=== PATIENT | female | born 2000 | race Caucasian/White ===

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

== ENCOUNTER 2019-08-25 18:26 | Emergency (ER) | payer SELFPAY ==
--- OUTSIDE RECORDS SUMMARY | 2019-08-25 18:27 | XMS REPORT ---
:2000 Author Organization [facility] t Address [address] [place] [address] [address] [place] [address] Care Team Providers Name Role Phone Unavailable Unavailable Unavailable Problems This patient has no known problems. Allergies, Adverse Reactions, Alerts This patient has no known allergies or adverse reactions. Medications This patient has no known medications.
--- OUTSIDE RECORDS SUMMARY | 2019-08-25 18:27 | XMS REPORT ---
:2000 Author Organization [facility] Address Unavailable , Allergies, Adverse Reactions, Alerts Allergy Name Reaction Description Start Date Severity Status Pr ovider No Known Allergies Jenny Lopez Conditions or Problems Problem Name Problem Onset Status Entry Provider Comment Standard A nnotate Code Date Date Description Contraception V25.09 Active Jayne Valdez Encounter for counseling 08/22 [place] other gener al MD counseling and advice on contraceptive management Missed period 626.8 Active Jayne Valdez Other 08/22 [place] disorders of MD menstruation and other abnormal bleeding from female genital tract Vaginal 623.5 Active Jayne Valdez Leukorrhea, discharge 08/22 [place] not specifie d MD as infective Medication List Medication Instructions Start Stop Generic NDC Status Provider Patient Date Date Name Instruct tessy AGRAWAL 1 By NORGESTIMATE-ETH [id number] Active Philip aya Courtney Active 28 0.25-35 Mouth ESTRADIOL [place] MG-MCG Every MD ORAL daily TABLET Vital Signs Date Name Value Unit Range Description blood pressure, diastolic 71 mm[Hg] BP perez blood pressure, systolic 111 mm[Hg] BP sys height E&M 61 [in_us] Bdy height pulse rate E&M 70 /min Heart rate respiratory rate E&M 18 /min Resp rate temperature E&M 97.8 [degF] Body temp erature weight E&M 105.60 [lb_av] Weight Measure d Diagnostic Results Date Name Value Unit Range Description Lab Report: Ct, Ng, Trich vag by NKECHI - L ab chlamydia DNA probe Negative Negative Lab Report: Ct, Ng, Trich vag by NKECHI - M icrobiology Neisseria gonorrhoeae DNA probe Negative Nega tive Office Visit: Acute Visit rm 3 - Medication Manager ry beta HCG, urine, semiquantitative negative Encounters Date Encounter Provider Code Facility New Patient Problem Jayne Centeno [id number] Lexie Alejo 15:18:27 [facility] - [id number] [facility]
--- OUTSIDE RECORDS SUMMARY | 2019-08-25 18:27 | XMS REPORT | Summary of Care ---
:2000 Author Organization [facility] Address [address] [place] [address] Care Team Providers Name Role Phone Pancho Acosta MD Primary Care Provider Reason for Referral Radiology Services (Routine) Status Reason Specialty Diagnoses / Referred By Referred To Procedures Contact Contact Closed Diagnostic Diagnoses Bloating Vidal Acosta Radiology Procedures US ABDOMEN COMPLETE MD Pancho [address] [place] [address] [place] [address] Reason for Visit Radiology Services (Routine) Status Reason Specialty Diagnoses / Referred By Referred To Procedures Contact Contact Closed Diagnostic Diagnoses Bloating Vidal Acosta Radiology Procedures US ABDOMEN YAMILETH Deleon MD [address] [place] [address] [place] [address] Encounter Details Date Type Department Care Team Description 05/15/2019 Hospital Encounter [facility] Fabiano Acosta Arrived [facility] [address] [place] [address] [place] [address] [place] [address] [place] [address] [phone] [address] Allergies No Known Allergiesdocumented as of this encounter (statuses as of 05/16/2019) Medications Medication Sig Dispensed Refills Start Date End Date Status norethindrone-e.estrad Take 1 tablet 1 Package 0 05/16/2016 Active iol-iron (MICROGESTIN by mouth daily. FE) 1.5 mg-30 mcg (21)/75 mg (7) per tablet hydrocortisone 1 % Rub in well to 30 g 1 04/07/2017 Active ointmentIndications: area 4 times a Chemical burn day Nitrofurantoin&Nit. Take 1 capsule 14 capsule 0 05/12/2019 Active Macrocryst 100 mg by mouth 2 capsuleIndications: (two) times Acute UTI daily for 7 days. documented as of this encounter (statuses as of 05/16/2019) Active Problems Problem Noted Date Bloating 05/12/2019 Surveillance of previously prescribed contraceptive me thod 05/27/2015 documented as of this encounter (statuses as of 05/16/2019) Immunizations Name Administration Dates Next Due DTAP 08/10/2003, 10/22/2000, 01/18/2000, 1999, 1999 HIB 4 Dose Schedule 08/10/2003, 07/23/2000, 01/18/2000, 1999, 1999 HPV 12/11/2012, 07/05/2012, 12/20/2011 Hep B, Adol or Pedi Dosage 05/03/2000, 1999, 0 MMR 08/10/2003, 07/23/2000 Meningococcal B, OMV 10/04/2015, 08/23/2015 Meningococcal Polysaccharide (groups 08/23/2015 A, C, Y and W-135) conjugate vaccine (MCV4P) Meningococcal Vaccine 12/20/2011 TDAP (ADACEL) VACCINE 12/20/2011 Varicella-zoster ig 12/20/2011 documented as of this encounter Social History Tobacco Use Types Packs/Day Years Used Date Never Smoker Smokeless Tobacco: Never Used Alcohol Use Drinks/Week oz/Week Comments No 0 Standard drinks or equivalent 0.0 Sex Assigned at Date Recorded Not on file Job Start Date Occupation Industry Not on file Not on file Not on file Travel History Travel Start Travel End No recent travel history available. documented as of this encounter Last Filed Vital Signs Not on filedocumented in this encounter Plan of Treatment Health Maintenance Due Date Last Done Comments CHLAMYDIA SCREENING 05/12/2020 Postponed fr om 2015 (Refu sed) INFLUENZA VACCINE (#1) 2020 Postponed from 12/29/2018 (Refu sed) DTaP,Tdap,and Td Vaccines 12/19/2021 12/20/2011, 08/10/2003 , (7 - Td) 10/22/2000, Additional history exists HPV VACCINES Completed 12/11/2012, 07/05/2012, 12/20/2011 MENINGOCOCCAL VACCINE Completed 08/23/2015, 12/20/2011 MENINGOCOCCAL B VACCINES Completed 10/04/2015, 08/23/2015 PNEUMOCOCCAL 0-64 YEARS Aged Out No longe r eligible COMBINED SERIES based on patient 's age to complete this topic VARICELLA VACCINES Discontinued documented as of this encounter Procedures Procedure Name Priority Date/Time Associated Diagnosis Comme nts US ABDOMEN COMPLETE Routine 05/15/2019 5:25 PM Bloating R esults 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 No i ntraluminal stones seen in the proximal duct. If there is suspicion for choledocholithiasis. Consider magnetic resonance imaging with MRCP. Two simple renal cysts on the left. Preliminary Report Dictated by Resident: Jake Underwood I, Deo Tan MD., have reviewed this study and agree with the above report. Narrative Performed At EXAM: US ABDOMEN COMPLETE PACS/VR/DOSE HISTORY: 18 years-old Female with 18yo F with chronic bloating. . TECHNIQUE: Complete abdominal ultrasound was performed. Main portal vein was with color Doppler imaging. Director Trading images were obtained for the record. COMPARISON: None FINDINGS: LIVER: Length: 14.1 cm. Parenchyma: Normal hepatic echogenicity and echotextur e. No focal lesion is detected. Portal vein: Hepatopetal flow present in the main portal vein. The main portal vein measures 0.9 cm in diameter. GALLBLADDER: No cholelithiasis. Normal gallbladder wall thickness, 3 mm. Negative Brown's sign. BILE DUCTS: Common Duct diameter: Mildly dilated at 7 mm. PANCREAS: Limited visualization due to s hadowing from bowel gas. SPLEEN: The spleen is normal in size. The spleen measures 9.7 cm. No focal lesions in the spleen. KIDNEYS: RIGHT: Length: Normal, 10.6 cm. Parenchyma: Normal renal cortical echoge nicity and thickness. No focal solid or cystic renal lesions are detect ed. Collecting System: No hydronephrosis. LEFT: Length: Normal, 10.3 cm. Parenchyma:Normal renal cortical echogen icity and thickness. 2 anechoic cystic structures are identified, one at mid pole, measuring 2.3 cm, another measuring 6 mm. Collecting System: No hydronephrosis. 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 . TECHNIQUE: Complete abdominal ultrasound was performed. Main portal vein was with color Doppler imaging. Represen tative images were obtained for the record. COMPARISON: None FINDINGS: LIVER: Length: 14.1 cm. Parenchyma: Normal hepatic echogenicity and echotexture. No focal lesion is detected. Portal vein: Hepatopetal flow present in the main portal vein. The main portal vein measures 0.9 cm in diameter. GALLBLADDER: No cholelithiasis. Normal gallbladder wall thickness, 3 mm. Negative Brown's sign. BILE DUCTS: Common Duct diameter: Mildly dilated at 7 mm. PANCREAS: Limited visualization due to s hadowing from bowel gas. SPLEEN: The spleen is normal in size. The spleen measures 9.7 cm. No focal lesions in the spleen. KIDNEYS: RIGHT: Length: Normal, 10.6 cm. Parenchyma: Normal renal cortical echoge nicity and thickness. No focal solid or cystic renal lesions are detect ed. Collecting System: No hydronephrosis. LEFT: Length: Normal, 10.3 cm. Parenchyma:Normal renal cortical echogen icity and thickness. 2 anechoic cystic structures are identified, one at mid pole, measuring 2.3 cm, another measuring 6 mm. Collecting System: No hydronephrosis. IMPRESSION Mildly dilated CBD, measuring 7 mm. No i ntraluminal stones seen in the proximal duct. If there is suspicion for choledocholithiasis. Consider magnetic resonance imaging with MRCP. Two simple renal cysts on the left. Preliminary Report Dictated by Resident: Deo Aguayo MD., have reviewed th is study and agree with the above report. Performing Organization Address City/State/Zipcode Phone Number PACS/VR/DOSE documented in this encounter Visit Diagnoses Diagnosis Bloating Flatulence, eructation, and gas pain documented in this encounter Guarantor Name Account Type Relation to Date of Phone Billing Address Patient Gernand,Minerva Personal/Famil Self 2000 [address] [place], [place] [address] documented as of this encounter
--- OUTSIDE RECORDS SUMMARY | 2019-08-25 18:28 | XMS REPORT | Summary of Care ---
:2000 Author Organization [facility] Address [address] [place] [address] Care Team Providers Name Role Phone Pancho Acosta MD Primary Care Provider Reason for Visit Reason Comments Results Encounter Details Date Type Department Care Team Description 05/16/2019 Telephone [facility] Family Medicine Vidal Gutierrez MD Results - [address] [address] [place] [phone] Allergies No Known Allergiesdocumented as of this encounter (statuses as of 05/26/2019) Medications Medication Sig Dispensed Refills Start Date End Date Status norethindrone-e.estradio Take 1 tablet by 1 Package 0 05/16/19 17 Active l-iron (MICROGESTIN FE) mouth daily. 1.5 mg-30 mcg (21)/75 mg (7) per tablet hydrocortisone 1 % Rub in well to 30 g 1 04/07/2017 Active ointmentIndications: area 4 times a Chemical burn day documented as of this encounter (statuses as of 05/26/2019) Active Problems Problem Noted Date Common bile duct dilatation 05/19/2019 Simple renal cyst 05/19/2019 Bloating 05/12/2019 Surveillance of previously prescribed contraceptive me thod 05/27/2015 documented as of this encounter (statuses as of 05/26/2019) Immunizations Name Administration Dates Next Due DTAP [...] (#1) 2020 Postponed from 12/29/2018 (Refu sed) WELL CARE VISIT: 12-05/12/2020 05/12/2019 YEARS (yearly) DTaP,Tdap,and Td Vaccines 12/19/2021 12/20/2011, 08/10/2003 , (7 - Td) 10/22/2000, Additional history exists HPV VACCINES Completed 12/11/2012, 07/05/2012, 12/20/2011 MENINGOCOCCAL VACCINE Completed 08/23/2015, 12/20/2011 MENINGOCOCCAL B VACCINES Completed 10/04/2015, 08/23/2015 PNEUMOCOCCAL 0-64 YEARS Aged Out No longe r eligible COMBINED SERIES based on patient 's age to complete this topic VARICELLA VACCINES Discontinued documented as of this encounter Results Not on filedocumented in this encounter Insurance Payer Benefit Plan / Group Subscriber ID Effective Dates Phone Address Type FLORES TANNER II [id number] 2019-Present H [place]/PPO/POS documented as of this encounter
--- OUTSIDE RECORDS SUMMARY | 2019-08-25 18:28 | XMS REPORT | Summary of Care ---
:2000 Author Organization [facility] Address [address] [place] [address] Care Team Providers Name Role Phone Pancho Acosta MD Primary Care Provider Reason for Visit Reason Comments Assessment Encounter Details Date Type Department Care Team Description 06/03/2019 Telephone [facility] and Vidal العلي MD Assessment Adult Primary Care- [address] [place] [address] [address] [place] [address] Allergies No Known Allergiesdocumented as of this encounter (statuses as of 06/04/2019) Medications Medication Sig Dispensed Refills Start Date End Date Status norethindrone-e.estradio Take 1 tablet by 1 Package 0 05/16/19 17 Active l-iron (MICROGESTIN FE) mouth daily. 1.5 mg-30 mcg (21)/75 mg (7) per tablet hydrocortisone 1 % Rub in well to 30 g 1 04/07/2017 Active ointmentIndications: area 4 times a Chemical burn day documented as of this encounter (statuses as of 06/04/2019) Active Problems Problem Noted Date Common bile duct dilatation 05/19/2019 Simple renal cyst 05/19/2019 Bloating 05/12/2019 Surveillance of previously prescribed contraceptive me thod 05/27/2015 documented as of this encounter (statuses as of 06/04/2019) Immunizations Name Administration Dates Next Due DTAP [...] filedocumented in this encounter Plan of Treatment Date Type Specialty Care Team Description 06/04/2019 Office Visit Family Medicine Hernan Anaya y, AUTO 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
--- OUTSIDE RECORDS SUMMARY | 2019-08-25 18:29 | XMS REPORT | Summary of Care ---
:2000 Author Organization [facility] Address [address] [place], [place] [address] Care Team Providers Name Role Phone Pancho Acosta MD Primary Care Provider Encounter Details Date Type Department Care Team Description 06/17/2019 Orders Only [facility] Doctor Unassigned, [address] [facility] [place] [address] Allergies No Known Allergiesdocumented as of this encounter (statuses as of 06/17/2019) Medications Medication Sig Dispensed Refills Start Date End Date Status norethindrone-e.estradio Take 1 tablet by 1 Package 0 05/16/19 17 Active l-iron (MICROGESTIN FE) mouth daily. 1.5 mg-30 mcg (21)/75 mg (7) per tablet hydrocortisone 1 % Rub in well to 30 g 1 04/07/2017 Active ointmentIndications: area 4 times a Chemical burn day documented as of this encounter (statuses as of 06/17/2019) Active Problems Problem Noted Date Common bile duct dilatation 05/19/2019 Simple renal cyst 05/19/2019 Bloating 05/12/2019 Surveillance of previously prescribed contraceptive me thod 05/27/2015 documented as of this encounter (statuses as of 06/17/2019) Immunizations Name Administration Dates Next Due DTAP [...] Name Priority Date/Time Associated Diagnosis Comme nts EXTERNAL PROVIDER Routine 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
--- OUTSIDE RECORDS SUMMARY | 2019-08-25 18:29 | XMS REPORT | Summary of Care ---
:2000 Author Organization [facility] Address [address] [place] [address] Care Team Providers Name Role Phone Pancho Acosta MD Primary Care Provider Reason for Visit Reason Comments UTI LAB WORK Encounter Details Date Type Department Care Team Description 06/04/2019 Office Visit [facility] Family Jaclyn Odalis, Bi lang (Primary Dx); Medicine - [place] MANAGED CARE LIAISON Dysuria; [facility] Annual physical exam [place], [place] [address] [address] [facility] [address] [place], [place] [address] [phone] Allergies No Known Allergiesdocumented as of this encounter (statuses as of 06/04/2019) Medications Medication Sig Dispensed Refills Start Date End Date Status norethindrone-e.estradi Take 1 tablet 1 Package 0 05/16/2016 Active ol-iron (MICROGESTIN by mouth daily. FE) 1.5 mg-30 mcg (21)/75 mg (7) per tablet hydrocortisone 1 % Rub in well to 30 g 1 04/07/2017 Active ointmentIndications: area 4 times a Chemical burn day sulfamethoxazole-trimet Take 1 tablet 10 tablet 0 06/04/2019 0 06/09/2019 Active hoprim 800-160 mg per by mouth 2 tabletIndications: (two) times Cystitis daily for 5 days. documented as of this encounter (statuses [...] of this encounter Last Filed Vital Signs Vital Sign Reading Time Taken Comments Blood Pressure 109/67 06/04/2019 11:15 AM ASSISTANT TO THE VICE PRESIDENT Pulse 80 06/04/2019 11:15 AM ASSISTANT TO THE VICE PRESIDENT Temperature 37 C (98.6 F) 06/04/2019 11:15 AM ASSISTANT TO THE VICE PRESIDENT Respiratory Rate 20 06/04/2019 11:15 AM ASSISTANT TO THE VICE PRESIDENT Oxygen Saturation 99% 06/04/2019 11:15 AM ASSISTANT TO THE VICE PRESIDENT Inhaled Oxygen Concentration - - Weight 47.9 kg (105 lb 9.6 oz) 06/04/2019 11:15 AM ASSISTANT TO THE VICE PRESIDENT Height 154.9 cm (5' 1") 06/04/2019 11:15 AM ASSISTANT TO THE VICE PRESIDENT Body Mass Index 19.95 06/04/2019 11:15 AM ASSISTANT TO THE VICE PRESIDENT documented in this encounter Patient Instructions Patient InstructionsOdalis Anaya FNP - 06/04/2019 11:00 AM ASSISTANT TO THE VICE PRESIDENT- Education provided to patient includes: - Increase water intake. - Wipe front to back for females. - Drink Cranberry juice. - Frequent voiding. - Avoid sexual activity until UTI resolves. - In the future, void before and after sexual activity. - Follow up in the ER for worsening condition: abdominal pain, flank pain, nausea, vomiting, dizziness, passing out, fever, chills. STANT TO THE VICE PRESIDENT documented in this encounter Progress Notes Kaylin Kwan - 06/04/2019 11:00 AM CST Venipuncture collection performed by clean technique on the left anticubitus. Total of 1 attempts were made. Slight pressure and a bandage/dressing were applied to the site(s). The patient experienced no complications. The following specimens were processed according to instructions and sent to [facility] laboratories per lab order on 06/04/19: LT BLUE SST RED LAV PPT DK GREEN (LiHep) DK GREEN (SodH) [facility] DK BLUE (K2) DK BLUE (S) ACD Blood Culture NIPT/NTD dalis Anaya FNP - 06/04/2019 11:00 AM CST Cc: Chief Complaint Patient presents with UTI Minerva Matthews is a 18 year old female that presents to the clinic for continued UTI symptoms. She was seen and treated with Nahidbimarcela by Dr. Acosta on 05/12/2019 for a UTI w/ E.Coli. She completedthe course of antibiotics and reports the symptoms improved but never completely resolved. Her symptoms have now progressively worsened again and she has an odor to urine. URINARY TRACT INFECTION Patient presents to clinic today with complaints of dysuria and frequency. Patient denies flank pain, hematuria or inability to urinate. This is a recurrent problem. The problem has been gradually worsening since onset. She is experiencing no pain. There has been no fever. Obstructive symptoms do not i nclude incomplete emptying. Pertinent negatives include no abdominal pain, chills, fever, flank pain, nausea or vomiting. She has tried antibiotics for the symptoms.The treatment provided mild relief. She is sexually active. Allergies Minerva has No Known Allergies. Medications Outpatient Medications Prior to Visit Medication Sig Dispense Refill hydrocortisone 1 % ointment Rub in well to area 4 times a day 30 g 1 norethindrone-e.estradiol-iron (MICROGESTIN FE) 1.5 mg-30 mcg (21)/75 mg (7) per tablet Take 1 tablet by mouth daily. 1 Package 0 No facility-administered medications prior to visit. Histories Past Medical History: Diagnosis Date Asthma Common bile duct dilatation 05/19/2019 Menstrual disorder heavy menses Simple renal cyst 05/19/2019 Past Surgical History: Procedure Laterality Date TONSILLECTOMY WITH ADENOIDECTOMY 2004 Social History Socioeconomic History Marital status: Single Spouse name: Not on file Number of children: Not on file Years of education: Not on file Highest education level: Not on file Occupational History Not on file Social Needs Financial resource strain: Not on file Food insecurity: Worry: Not on file Inability: Not on file Transportation needs: Medical: Not on file Non-medical: Not on file Tobacco Use Smoking status: Never Smoker Smokeless tobacco: Never Used Substance and Sexual Activity Alcohol use: No Alcohol/week: 0.0 standard drinks Drug use: No Sexual activity: Yes Partners: Male control/protection: Pill Comment: partner male age 18, no coercion Lifestyle Physical activity: Days per week: Not on file Minutes per session: Not on file Stress: Not on file Relationships Social connections: Talks on phone: Not on file Gets together: Not on file Attends christian service: Not on file Active member of club or organization: Not on file Attends meetings of clubs or organizations: Not on file Relationship status: Not on file Intimate partner violence: Fear of current or ex partner: Not on file Emotionally abused: Not on file Physically abused: Not on file Forced sexual activity: Not on file Other Topics Concern Not on file Social History Narrative Not on file Family History Problem Relation Age of Onset Psychiatry Mother bipolar Psychiatry Maternal Aunt bipolar Depression Maternal Grandmother Arthritis NoFHx Asthma NoFHx defects NoFHx Breast Cancer NoFHx Colon Cancer NoFHx Ovarian Cancer NoFHx Uterine Cancer NoFHx Cancer NoFHx Diabetes NoFHx Genetic NoFHx Heart NoFHx High cholesterol NoFHx Hypertension NoFHx Mental retardation NoFHx Neurological NoFHx Osteoporosis NoFHx Review of Systems Constitutional: Negative for chills and fever. Gastrointestinal: Negative for abdominal pain, nausea and vomiting. Genitourinary: Positive for dysuria and frequency. Negative for hematuria, flank pain, vaginal discharge, difficulty urinating, vaginal pain and incomplete emptying. Musculoskeletal: Negative for arthralgias and myalgias. Skin: Negative for rash. Psychiatric/Behavioral: Negative for agitation and confusion. Vital Signs BP 109/67 | Pulse 80 | Temp 37 C (98.6 F) | Resp 20 | Ht 5' 1" (1.549 m) | Wt 105 lb 9.6 oz(47.9 kg) | LMP 05/30/2019 (Approximate) | SpO2 99% | BMI 19.95 kg/m Physical Exam Constitutional: She is oriented to person, place, and time. She appears well- developed and well-nourished. No distress. HENT: Head: Normocephalic and atraumatic. Eyes: Conjunctivae are normal. Cardiovascular: Normal rate, regular rhythm, normal heart sounds and intact distal pulses. Pulmonary/Chest: Effort normal and breath sounds normal. Abdominal: Soft. Normal appearance and bowel sounds are normal. She exhibits no distension. There isno tenderness. There is no rigidity, no guarding and no CVA tenderness. Neurological: She is alert and oriented to person, place, and time. Gait normal. Skin: Skin is warm and dry. No rash noted. Psychiatric: She has a normal mood and affect. Her behavior is normal. Thought content normal. Nursing note and vitals reviewed. POCT U SP GRAV (mg/dl) Date Value 06/04/2019 1.020 POCT PH U (mg/dl) Date Value 06/04/2019 5 POCT U LEUK EST (no units) Date Value 06/04/2019 trace POCT U NIT (no units) Date Value 06/04/2019 neg POCT U PROT (no units) Date Value 06/04/2019 neg POCT U GLU (no units) Date Value 06/04/2019 neg POCT U KETONE (no units) Date Value 06/04/2019 normal POCT U UROBILI (mg/dl) Date Value 06/04/2019 normal POCT U BILI (no units) Date Value 06/04/2019 neg POCT U BLD (no units) Date Value 06/04/2019 trace POCT U COLOR (no units) Date Value 06/04/2019 yellow POCT U APPEAR (no units) Date Value 06/04/2019 clear Assessment/Plan 1. Cystitis - sulfamethoxazole-trimethoprim 800-160 mg per tablet; Take 1 tablet by mouth 2 (two) times daily for 5 days. Dispense: 10 tablet; Refill: 0 - Education provided to patient includes: - Increase water intake. - Wipe front to back for females. - Drink Cranberry juice. - Frequent voiding. - Avoid sexual activity until UTI resolves. - In the future, void before and after sexual activity. - Follow up in the ER for worsening condition: abdominal pain, flank pain, nausea, vomiting, dizziness, passing out, fever, chills. 2. Dysuria - URINE CULTURE - POCT URINALYSIS W SPECIFIC GRAVITY 3. Annual physical exam - having standing labs completed from previous wellness exam: - CBC WITH DIFF - COMP. METABOLIC PANEL (16915) - THYROID STIMULATING HORMONE - LIPID PANEL (75478)(TOTAL CHOLESTEROL, TRIGLYCERIDES, HDL) - GLYCOSYLATED HEMOGLOBIN (A1C) - CBC WITH DIFFERENTIAL Plan of care, desired health behaviors, goals, and medication discussed with patient. Education resources provided and reviewed with AVS. Patient/guardian/family verbalized understanding & agrees to plan of care. This visit did not involve counseling and coordination that comprised more than 50% of the visit time. Barriers to care: none. Ability to manage care: well. Odalis Anaya APRN, FNP-C 06/04/2019 11:41 AM STANT TO THE VICE PRESIDENT documented in this encounter Plan of Treatment Name Type Priority Associated Diagnoses Date/Ti me URINE CULTURE LAB Routine Dysuria 06/04/2019 11: 43 AM ASSISTANT TO THE VICE PRESIDENT CBC WITH DIFF LAB Routine Annual physical exam 2019 11:39 AM ASSISTANT TO THE VICE PRESIDENT COMP. METABOLIC PANEL LAB Routine Annual physical exa m 06/04/2019 11:39 AM ASSISTANT TO THE VICE PRESIDENT (95608) THYROID STIMULATING HORMONE LAB Routine Annual physic al exam 06/04/2019 11:39 AM ASSISTANT TO THE VICE PRESIDENT LIPID PANEL (96900)(TOTAL LAB Routine Annual physical exam 06/04/2019 11:39 AM ASSISTANT TO THE VICE PRESIDENT CHOLESTEROL, TRIGLYCERIDES, HDL) GLYCOSYLATED HEMOGLOBIN LAB Routine Annual physical e xam 06/04/2019 11:39 AM ASSISTANT TO THE VICE PRESIDENT (A1C) CBC WITH DIFFERENTIAL LAB Routine Annual physical exa m 06/04/2019 11:39 AM ASSISTANT TO THE VICE PRESIDENT Health Maintenance Due Date Last Done Comments [...] Name Priority Date/Time Associated Diagnosis Comme nts POCT URINALYSIS Routine 06/04/2019 Dysuria Results for this procedure are in the resu lts section. documented in this encounter Results POCT URINALYSIS W SPECIFIC GRAVITY (06/04/2019) Pathologist Sig nature POCT U SP GRAV 1.020 1.005 - 1.025 mg/dl POCT PH U 5 5 - 8 mg/dl POCT U LEUK EST trace Negative - Negative POCT U NIT neg Negative - Negative POCT U PROT neg Negative - Negative POCT U GLU neg Negative - Negative POCT U KETONE normal Negative - Negative POCT U UROBILI normal 0.2 - 1 mg/dl POCT U BILI neg Negative - Negative POCT U BLD trace Negative - Negative POCT U COLOR yellow POCT U APPEAR clear Specimen Urine - URINE, CLEAN CATCH documented in this encounter Visit Diagnoses Diagnosis Cystitis - Primary Cystitis, unspecified Dysuria Annual physical exam Routine general medical examination at a health care facility documented in this encounter Guarantor Name Account Type Relation to Date of Phone Billing Address Patient Minerva Matthews Personal/Famil Self 2000 [address] [place], [place] [address] documented as of this encounter
--- OUTSIDE RECORDS SUMMARY | 2019-08-25 18:29 | XMS REPORT | Summary of Care ---
:2000 Author Organization [facility] Address [address] [place] [address] Care Team Providers Name Role Phone Pancho Acosta MD Primary Care Provider Reason for Visit Reason Comments Assessment Encounter Details Date Type Department Care Team Description 08/06/[address] [facility] Family Medicine Vidal Gutierrez MD Assessment - [address] [address] [place] [address] [phone] Allergies No Known Allergiesdocumented as of this encounter (statuses as of 08/06/2019) Medications Medication Sig Dispensed Refills Start Date End Date Status hydrocortisone 1 % Rub in well to 30 g 1 04/07/2017 Active ointmentIndications: area 4 times a Chemical burn day vit Take by 0 Active calc,iron,folic ( mouth. VITAMIN ORAL) medroxyPROGESTERone 5 mg Take 2 tablets 20 tablet 3 07/25/2019 Active tabletIndications: every day on Irregular menstrual cycle days one through 10 of every month. documented as of this encounter (statuses as of 08/06/2019) Active Problems Problem Noted Date Common bile duct dilatation 05/19/2019 Simple renal cyst 05/19/2019 Bloating 05/12/2019 Surveillance of previously prescribed contraceptive me thod 05/27/2015 documented as of this encounter (statuses as of 08/06/2019) Immunizations Name Administration Dates Next Due DTAP [...] Treatment Date Type Specialty Care Team Description 08/07/2019 Office Visit Family Medicine Vidal Acosta MD [address] [place] [phone] 09/05/2019 Telemedicine Visit Obstetrics & Gonzalez, L MD [facility] [address] [place] [phone] Health Maintenance Due Date Last Done Comments [...] Dates Phone Address Type FLORES TANNER II [id number] 2019-Present H MO/PPO/POS documented as of this encounter
--- OUTSIDE RECORDS SUMMARY | 2019-08-25 18:29 | XMS REPORT | Summary of Care ---
:2000 Author Organization [facility] Address [address] [place] [address] Care Team Providers Name Role Phone Pancho Acosta MD Primary Care Provider Reason for Visit Reason Comments INFERTILITY Encounter Details Date Type Department Care Team Description 07/25/2019 Telemedicine Visit [facility] Daylin Gonzalez Fema le infertility associated with anovulation (Primary Dx); Women's MD Irregular menstrual cycle [facility]- [address] [place] [address] Drive, [address] [address] [place], [place] [phone] [address] [phone] Allergies No Known Allergiesdocumented as of this encounter (statuses as of 07/25/2019) Medications Medication Sig Dispensed Refills Start End Date Status Date hydrocortisone 1 % Rub in well 30 g 1 Active ointmentIndications: to area 4 7 Chemical burn times a day vit Take by 0 Active calc,iron,folic mouth. ( VITAMIN ORAL) medroxyPROGESTERone 5 Take 2 20 tablet 3 Active mg tabletIndications: tablets 0 Irregular menstrual every day cycle on days one through 10 of every month. norethindrone-e.estradi Take 1 1 Package 0 Discontinued ol-iron (MICROGESTIN tablet by 7 20 (Alternate FE) 1.5 mg-30 mcg mouth th erapy) (21)/75 mg (7) per daily. tablet documented as of this encounter (statuses as of 07/25/2019) Active Problems Problem Noted Date Common bile duct dilatation 05/19/2019 Simple renal cyst 05/19/2019 Bloating 05/12/2019 Surveillance of previously prescribed contraceptive me thod 05/27/2015 documented as of this encounter (statuses as of 07/25/2019) Immunizations Name Administration Dates Next Due DTAP [...] Signs Not on filedocumented in this encounter Progress Notes Daylin Gonzalez MD - 07/25/2019 2:30 PM CDT TELEHEALTH NOTE Verbal consent obtained from Patient: Minerva Matthews due to the COVID-19 pandemic for telehealth services provided below. Communication with patient was conducted via Telephone. Location of Patient: Home Location of Provider: Clinic Date of Service: 07/25/2019 Chief Complaint: Infertility HPI: Minerva Matthews is a 19 year old female who presents with complaints of infertilityand irregular menstrual cycles. Patient states that she has had unprotected intercourse for 8 months. She had been on oral contraceptive agents age [age] for irregular menses. She discontinued the oralcontraceptive agent in 10/2018. Since then her menses occurred initially after 94 days off of oral contraceptive agent. This was followed by a menstrual cycle 54 days later. This past month, she had vaginal spotting off and on for 30 days. She states that her last menstrual cycle began 05/31/19 through 06/03/19. She denies any particular pelvic pain. She has no history of pelvic infection, including Chlamy sarah or gonorrhea. She states that her partner has not fathered children before. She denies taking medications other than vitamins. Patient did have a weight shift at age 13 from 120 pounds to 90 pounds when she broke up with her boyfriend. She has weighed 105 pounds for over one year. She denies issues with eating disorders. Past Medical History: Diagnosis Date Asthma Common bile duct dilatation 05/19/2019 Menstrual disorder heavy menses Simple renal cyst 05/19/2019 MEDICATIONS: Outpatient Medications Marked as Taking for the 07/25/19 encounter (Telemedicine Visit) with Daylin Gonzalez MD Medication Sig Dispense Refill vit calc,iron,folic ( VITAMIN ORAL) Take by mouth. ROS Constitutional: Denies fever, chills Cardiovascular: Denies chest pain, palpitations Respiratory: Denies dyspnea, coughing Gastrointestinal: Denies nausea, vomiting Genitourinary: Denies urinary or bowel complaints TELEHEALTH EXAM Constitutional: Alert and in no apparent distress Respiratory: Breathing comfortably Neuro: Answers questions appropriately Psych: Affect normal ASSESSMENT/ PLAN Minerva Matthews is a 19 year old female who presents with infertility as well as irregular menstrual cycles. Due to complaints are most likely related to anovulatory cycles. Due to the current Covid 19 pandemic, we will await imaging studies, such as HSG. We will also hold on obtaining semen analysis at this time. Patient is not desiring oral contraceptive agents or other hormonal agents that would regulate her cycle yet prevent . Therefore, we will begin an attempted cycle control with cyclic Provera which she will take 10 mg days one through 10 of every month. She will take a urine test prior to initiating Provera therapy. Patient states she is capable of performing a urine test at home. As cycle control is gained, patient to begin basal body temperature charting and check prolactin,FSH/estradiol levels within cycle day 25. Follow-up 6 weeks via telemedicine. Patient consents to this appointment. After visit summary (AVS ) documentation will be available through [employer] for this encounter. A total of 30 minutes was spent on the Telephone with the patient. 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
--- OUTSIDE RECORDS SUMMARY | 2019-08-25 18:29 | XMS REPORT | Summary of Care ---
:2000 Author Organization [facility] - [address] [address] Care Team Providers Name Role Phone Pancho Acosta MD Primary Care Provider Reason for Visit Reason Comments Assessment Encounter Details Date Type Department Care Team Description 07/30/2019 Telephone [facility] Daylin Gonzalez MD Assessment Healthcare- [address], [place] [address] [address] [place] [address] [phone] Allergies No Known Allergiesdocumented as of this encounter (statuses as of 07/30/2019) Medications Medication Sig Dispensed Refills Start Date [...] as of this encounter (statuses as of 07/30/2019) Active Problems Problem Noted Date Common bile duct dilatation 05/19/2019 Simple renal cyst 05/19/2019 Bloating 05/12/2019 Surveillance of previously prescribed contraceptive me thod 05/27/2015 documented as of this encounter (statuses as of 07/30/2019) Immunizations Name Administration Dates Next Due DTAP [...] Team Description 09/05/2019 Telemedicine Visit Obstetrics & Gonzalez, L MD [facility] [address] [place] [place] [phone] Health Maintenance Due Date Last Done Comments CHLAMYDIA SCREENING 05/12/2020 Postponed fr om 2015 (Refu sed) INFLUENZA VACCINE (#1) 2020 Postponed from 12/29/2018 (Refu sed) WELL CARE VISIT: 04-1905/12/2020 05/12/2019 YEARS (yearly) DTaP,Tdap,and Td Vaccines 12/19/2021 [...] Subscriber ID Effective Dates Phone Address Type [employer]IG[employer] CIGNA II [id number] 2019-Present H MO/PPO/POS documented as of this encounter
--- OUTSIDE RECORDS SUMMARY | 2019-08-25 18:29 | XMS REPORT | Summary of Care ---
:2000 Author Organization [facility] Address [address] [place] [id number] Care Team Providers Name Role Phone Pancho Acosta MD Primary Care Provider Reason for Visit Reason Comments UTI LAB WORK Encounter Details Date Type Department Care Team Description 06/04/2019 Office Visit [facility] Jaclyn Odalis, Bi lang (Primary Dx); Medicine - [place] [facility] Dysuria; [facility] Annual physical exam [place], [place] [address] [id number] [facility] [address] [place], [place] [address] [phone] Allergies No Known Allergiesdocumented as of this [...] Comments Blood Pressure 109/67 06/04/2019 11:15 AM VIDEO PRODUCTION SPECIALIST Pulse 80 06/04/2019 11:15 AM VIDEO PRODUCTION SPECIALIST Temperature 37 C (98.6 F) 06/04/2019 11:15 AM VIDEO PRODUCTION SPECIALIST Respiratory Rate 20 06/04/2019 11:15 AM VIDEO PRODUCTION SPECIALIST Oxygen Saturation 99% 06/04/2019 11:15 AM VIDEO PRODUCTION SPECIALIST Inhaled Oxygen Concentration - - Weight 47.9 kg (105 lb 9.6 oz) 06/04/2019 11:15 AM VIDEO PRODUCTION SPECIALIST Height 154.9 cm (5' 1") 06/04/2019 11:15 AM VIDEO PRODUCTION SPECIALIST Body Mass Index 19.95 06/04/2019 11:15 AM VIDEO PRODUCTION SPECIALIST documented in this encounter Patient Instructions Patient InstructionsOdalis Anaya FNP - 06/04/2019 11:00 AM VIDEO PRODUCTION SPECIALIST- Education provided to patient includes: - Increase water intake. - Wipe front to back for females. - Drink Cranberry juice. - Frequent voiding. - Avoid sexual activity until UTI resolves. - In the future, void before and after sexual activity. - Follow up in the ER for worsening condition: abdominal pain, flank pain, nausea, vomiting, dizziness, passing out, fever, chills. O PRODUCTION SPECIALIST documented in this encounter Progress Notes Kaylin Kwan - 06/04/2019 11:00 AM CST Venipuncture collection performed by clean technique on the left anticubitus. Total of 1 attempts were made. Slight pressure and a bandage/dressing were applied to the site(s). The patient experienced no complications. The following specimens were processed according to instructions and sent to [facility] laboratories per lab order on 06/04/19: LT [...] file Gets together: Not on file Attends jainism service: Not on file Active member of [...] CBC WITH DIFF - COMP. METABOLIC PANEL (19580) - THYROID STIMULATING HORMONE - LIPID PANEL (05376)(TOTAL CHOLESTEROL, TRIGLYCERIDES, HDL) - GLYCOSYLATED HEMOGLOBIN (A1C) [...] Odalis Anaya APRN, FNP-C 06/04/2019 11:41 AM O PRODUCTION SPECIALIST documented in this encounter Plan of Treatment Name Type Priority Associated Diagnoses Date/Ti me URINE CULTURE LAB Routine Dysuria 06/04/2019 11: 43 AM VIDEO PRODUCTION SPECIALIST CBC WITH DIFF LAB Routine Annual physical exam 2019 11:39 AM VIDEO PRODUCTION SPECIALIST COMP. METABOLIC PANEL LAB Routine Annual physical exa m 06/04/2019 11:39 AM VIDEO PRODUCTION SPECIALIST (18411) THYROID STIMULATING HORMONE LAB Routine Annual physic al exam 06/04/2019 11:39 AM VIDEO PRODUCTION SPECIALIST LIPID PANEL (87281)(TOTAL LAB Routine Annual physical exam 06/04/2019 11:39 AM VIDEO PRODUCTION SPECIALIST CHOLESTEROL, TRIGLYCERIDES, HDL) GLYCOSYLATED HEMOGLOBIN LAB Routine Annual physical e xam 06/04/2019 11:39 AM VIDEO PRODUCTION SPECIALIST (A1C) CBC WITH DIFFERENTIAL LAB Routine Annual physical exa m 06/04/2019 11:39 AM VIDEO PRODUCTION SPECIALIST Health Maintenance Due Date Last Done Comments [...] 2000 [address] [place], [place] [address] documented as of this encounter
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
[2019-08-25] MEDS ORDERED: KETOROLAC 30 MG/ML INJ ONE (19:29)
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
[2019-08-25 20:53] LABS: Urine Blood NEGATIVE (NEG); Urine Glucose NEGATIVE (NEG); Urine Protein NEGATIVE (NEG); Urine Specific Gravity 1.025 (1.005-1.030)
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
[2019-08-25 22:17] VITALS: BP 127/81; TEMP 98.8; O2SAT 100
== END 2019-08-25 21:59 | disposition home or self-care (01) ==
LOC: ER 18:26
DX: S16.1XXA Strain of muscle, fascia and tendon at neck level, initial encounter (principal); V49.50XA Passenger injured in collision with unspecified motor vehicles in traffic accident, initial encounter
CPT/HCPCS: 70450; 72125; 81003; 81025; 96372; 99284

== ENCOUNTER 2020-05-14 16:19 | Inpatient (IN) | payer OTHER ==
--- OUTSIDE RECORDS SUMMARY | 2020-05-14 16:22 | XMS REPORT | Continuity of Care Document ---
:2000 Author Organization [facility] t Address [address] [place] [address] [address]. [address] [place] [address] Care Team Providers Name Role Phone Carlos CROUCH Attending Clinician Problems This patient has no known problems. Allergies, Adverse Reactions, Alerts This patient has no known allergies or adverse reactions. Medications This patient has no known medications. Procedures This patient has no known procedures. Encounters Start End Encounter Admission Attending Care Care Encounter Source Date/Time Date/Time Type Type Clinicians Facility Department ID 2019-09-05 2019-09-05 Telephone MARIA A Gonzalez [id number] 00:00:00 00:00:00 Daylin Chacko [id number] Enoch [id number] Manuel [id number] [facility] [address] [facility] Results This patient has no known results.
[2020-05-14] MEDS ORDERED: Ringers Lactate 1,000 ML IV PRN (16:28)
[2020-05-14] MEDS ORDERED: Ringers Lactate 1,000 ML IV SCH (17:00)
[2020-05-14] MEDS ORDERED: PENICILLIN G POT 5 MU/100 ML VIAL IV ONE (17:00)
[2020-05-14] MEDS ORDERED: PROMETHAZINE INJ 25 MG/ML AMP IV PRN (17:11)
[2020-05-14] MEDS ORDERED: BUTORPHANOL 1 MG/ML INJ IV PRN (17:11)
[2020-05-14 17:34] VITALS: BMI 27.0
[2020-05-14 17:43] LABS: Absolute Lymphocytes (CBC) 1.9 K/uL (0.7-4.9); Basophils % 0.2 % (0-1.3); Lymphocytes % 12.3 % (15.3-44.8); MPV 11.7 fL (7.6-11.3); RBC Red Blood Cell Count 4.65 M/uL (3.86-4.86)
[2020-05-14] MEDS ORDERED: ROPIVACAINE HCL 0.2% 20ML AMP IV ONE (17:52)
[2020-05-14] MEDS ORDERED: FENTANYL CITR 100 MCG/2 ML IV ONE (17:52)
--- NOTE | 2020-05-14 18:17 | P.PN ---
Date of Service: 05/14/20 SROM 37+ wks, active labor. Plan, epidural catheter, pcn prophylaxis for +strep, watch progress for evidence of cpd.
[2020-05-14] MEDS ORDERED: ROPIVACAINE HCL 100 ML EP ONE (19:15)
[2020-05-14] MEDS ORDERED: OXYTOCIN/LR 20 UNIT/1,000 ML BAG IV SCH (20:00)
[2020-05-14] MEDS ORDERED: OXYTOCIN/LR 20 UNIT/1,000 ML BAG IV ONE (20:04)
--- NOTE | 2020-05-14 20:52 | PREOPHP ---
Date of Admission: 05/14/2020 History Of Present Illness: Ms. Matthews is a 19-year-old, single, female, 1, para 0, at approximately 37+ weeks gestation. She is admitted with spontaneous rupture of membranes, in a ctive labor. She has been followed by me during this with complications of HSV carriage an d positive beta strep carriage. Past Medical History: Please see record. Family History: Please see record. Review of Systems: She reports no recent cough, cold, fever, or chills. No recent nausea or vomiting. No breast knots or lumps. No bowel or bladder issues. has been active. She knows some possible leakage and then had a gush of fluid. She came to Labor and Delivery. Physical Examination: General: Reveals female in moderate discomfort. Neck: Supple without adenopathy or thyromegaly. Lungs: Clear. Cardiac: Regular rate and rhythm without murmurs. Breasts: Not examined. Abdomen: Estimated weight of 7+ to 8+ pounds. Pelvic: Cervix noted to be of 3 cm 85% effaced, vertex -2 station. Extremities: No cyanosis, clubbing with trace edema. Impression: 37+ week , spontaneous rupture of membranes, positive beta strep carriage, acti ve labor. Plan: The patient will be prophylaxed with penicillin for strep carriage. She has been on Valtrex 1 g daily from the last 2 weeks, prophylaxed against HSV. She reports no symptoms of outbreak. No vi sible lesions are noted. We will do type and screen because of concerns of possible CPD. We will place epidural catheter at patient's request. DEYSI/GOPAL Voice ID: [id number]
[2020-05-14] MEDS ORDERED: PENICILLIN G POT 5 MU/VIAL IV ONE (20:53)
[2020-05-14] MEDS ORDERED: NA CHLORIDE 0.9% 50 ML ONE (20:54)
[2020-05-14] MEDS ORDERED: PENICILLIN 2.5 MU in NA CHLORIDE 0.9% 100 ML IV SCH (21:00)
[2020-05-14 21:19] LABS: RPR (Rapid Plasma Reagin) NON-REACT (NON-REACT)
[2020-05-15] MEDS ORDERED: NA CIT/CITRIC AC 30 ML ORAL UDC PO ONE (00:52)
[2020-05-15] MEDS ORDERED: METOCLOPRAMIDE 10 MG/2mL INJ IV SCH (01:00)
[2020-05-15] MEDS ORDERED: CEFAZOLIN 2 GM in NA CHLORIDE 0.9% 100 ML IVPB SCH (01:00)
[2020-05-15] MEDS ORDERED: CEFAZOLIN/SWI 2gm 2 GM/20 ML SYR ONE (01:05)
[2020-05-15] MEDS ORDERED: NA CIT/CITRIC AC 30 ML ORAL UDC ONE (01:09)
[2020-05-15] MEDS ORDERED: METOCLOPRAMIDE 10 MG/2mL INJ ONE (01:09)
[2020-05-15] MEDS ORDERED: FAMOTIDINE 20 MG/2 ML VIAL IV ONE (01:10)
[2020-05-15] MEDS ORDERED: MORPHINE SULFATE/PF 1 MG/ML (10 ML AMP) ONE (01:21)
[2020-05-15] MEDS ORDERED: METHYLERGONOVINE 0.2MG/ML AMP IM ONE (01:22)
[2020-05-15] MEDS ORDERED: CARBOPROST TROME 250 MCG/ML IM ONE (01:22)
[2020-05-15] MEDS ORDERED: LIDOCAINE 2% W/EPI 1:200,000 MPF 20 ML VIAL IM ONE (01:22)
[2020-05-15] MEDS ORDERED: OXYTOCIN 10 UNIT/ML ML IV ONE (01:22)
[2020-05-15] MEDS ORDERED: KETAMINE HCL 500 MG/5 ML VIAL ONE (01:47)
[2020-05-15] MEDS ORDERED: MIDAZOLAM HCL 2 MG/2 ML INJ ONE (01:47)
[2020-05-15] MEDS ORDERED: NS 0.9% VIAL 10 ML ONE (01:49)
[2020-05-15] MEDS ORDERED: CARBOPROST TROME 250 MCG/ML IM PRN (02:14)
[2020-05-15] MEDS ORDERED: ONDANSETRON 4 MG (ODT) TAB PO PRN (02:14)
[2020-05-15] MEDS ORDERED: Oxycodone HCl/Acetaminophen 1 TAB TAB PO PRN (02:14)
[2020-05-15] MEDS ORDERED: miSOPROStoL 100 MCG TAB PO PRN (02:16)
--- NOTE | 2020-05-15 02:19 | P.BOP ---
Preoperative diagnosis: 37+ wk , ftp, nrfht's Postoperative diagnosis: same, delivery viable male Primary procedure: , delivery viable male Computer Repair Instructor: ALESSANDRA Corrales Estimated blood loss: 600ml Anesthesia: epidural Complications: None Transferred to: Other (273) Condition: Good
[2020-05-15] MEDS ORDERED: OXYTOCIN/LR 20 UNIT/1,000 ML BAG IV SCH (03:00)
[2020-05-15] MEDS ORDERED: FAMOTIDINE 20 MG/2 ML VIAL IV SCH (09:00)
--- NOTE | 2020-05-15 09:21 | P.PN ---
Date of Service: 05/15/20 S-No complaints except pruritus. O-Afeb, vs stable, bp borderline, bandage dry, abdomen soft, urine clear A-Satisfactory, advance diet during day, iv and zuñiga out this pm. P-Probably home Sunday am so can monitor bp
[2020-05-15] MEDS ORDERED: Ringers Lactate 2,000 ML IV ONE (09:25)
[2020-05-15] MEDS: KETOROLAC 30 MG/ML INJ IV PRN (12:30)
[2020-05-16 05:19] LABS: Absolute Lymphocytes (CBC) 1.8 K/uL (0.7-4.9); Basophils % 0.3 % (0-1.3); Lymphocytes % 8.2 % (15.3-44.8); MPV 10.6 fL (7.6-11.3); RBC Red Blood Cell Count 3.54 M/uL (3.86-4.86)
[2020-05-16 06:57] LABS: Blood Morphology Comment NOT SEEN (NOT SEEN); Platelet Estimate DECR
[2020-05-16 07:56] VITALS: O2SAT 98
--- NOTE | 2020-05-16 08:01 | P.PN ---
Date of Service: 05/16/20 S-CO of just not feeling right, dizzy O-Afeb, vs stable, though bp borderline when agitated, worried. Bandage dry, abdomen soft though mildly tender, incision dry. CBC with elevated wbc's and decreased platelets. A-po endometritis in +beta strep, post labor/, PIH with decreased platelets P-Watch bp, repeat cbc in am, start po Cleocin secondary to endometritis, most likely strep/gram + organizms, prophylaxed with pcn/Ancef, so will choose Cleocin po as tx.
[2020-05-16] MEDS: KETOROLAC 30 MG/ML INJ IV PRN (08:30)
--- NOTE | 2020-05-16 16:08 | P.PN ---
Date of Service: 05/16/20 Feels much better this evening than this am, as ambulated, had bm etc. Plan, will check tomorrow am and likely dismiss to home.
[2020-05-16] MEDS: IBUPROFEN 600 MG TAB PO PRN (18:42)
[2020-05-17] MEDS: IBUPROFEN 600 MG TAB PO PRN ×2 (00:45→08:15)
[2020-05-17 04:59] LABS: Hematocrit 30.4 % (36.0-45.0); MPV 10.2 fL (7.6-11.3); RBC Red Blood Cell Count 3.41 M/uL (3.86-4.86)
--- NOTE | 2020-05-17 08:16 | DS ---
Final Hospital Discharge Diagnoses: 37+ week , delivered. Failure to progress in labor with delivery by section, postoperative endometritis. Complications: Postoperative endometritis. Procedures: Placement of epidural catheter, primary section, delivery of viable female . Hospital Course: The patient is a 19-year-old female, 1, para 0, at 37+ weeks gestation, admitted with spontaneous rupture of membranes in active labor. She failed to progress beyond 7+ to 8 cm dilation and started showing evidence of nonreassuring heart tones. Because of this, she underwent primary section with epidural anesthesia, delivered a 7-pound 2-ounce female infant, 9 and 9. Her postoperative course was complicated by mildly elevated blood pressure. Platelet count that dropped from approximately 140 to 99 and [place] [address] postoperatively because of protracted labor, obstructed labor course resulting in a section and beta strep carriage. Suspicion was that she had postoperative endometritis, although she remained afebrile. She was started on p.o. Cleocin 300 mg p.o. q.6 hours and the following day, white blood cell count dropped to 15,000. She remained afebrile. Platelet count elevated to approximately 116,000. She was dismissed on the second postoperative day, ambulatory, on a select diet with routine post section, activity restrictions to be seen back in my office in approximately 3-4 days for blood pressure check. She was dismissed to continue taking her iron and vitamins with prescription for Tylenol No.3, #10 for pain relief and Cleocin 300mg QID for five additional days. Lab work included an admission hemoglobin and hematocrit of 13.7 and 42.0, dismissal 10.2 and 30.4 with 116,000 [place] [address]. She is O positive blood type. COVID test was negative by PCR. DEYSI/GOPAL Voice ID: [id number] Report ID: [id number] WILI
[2020-05-17 10:40] VITALS: BP 127/84; TEMP 98
[2020-05-19 19:51] LABS: HBsAG Nonreactive (Nonreactive)
--- NOTE | 2020-05-19 21:00 | OP ---
Surgeon: Viktor Brown MD Anesthesiologist: Dr. Hi. Preoperative Diagnoses: 1.37+ week . 2.Failure to progress in labor. 3.Nonreassuring heart rate. Postoperative Diagnoses: 1.37+ week . 2.Failure to progress in labor. 3.Nonreassuring heart rate. Procedure: Epidural anesthesia, primary section with delivery of a viable female . Description Of Procedure: After a satisfactory level of epidural anesthesia, patient was prepped and draped in the usual fashion for abdominal surgery. A Pfannenstiel skin incision was made and shirley d down to the fascia. Fascia was incised with a combination of sharp and blunt dissection. This was from the underlying rectus muscles. These were divided in the midline. The peritoneum wa s identified and incised. Vesicouterine peritoneum was incised. Bladder flap was developed. A low- transverse uterine incision was made. A 7 pounds 2 ounces female , 9 and 9 was delivered from deep in the pelvis. Cord was clamped, cut, and the placed in a warmer. Cord blood was obtained. Placenta was manually removed. The uterus was then exteriorized. The uterus was closed w ith running suture in a nonlocking fashion with 0 Vicryl from either margin in 2 layers, second layer used to imbricate the first. Uterus was returned to peritoneal cavity which was cleaned of amniotic fluid, debris, and blood clot. The rectus muscles were approximated in the midline with simple sutu res of 0 Vicryl. Fascia was closed with running suture of #1 Vicryl. Subcutaneous sutures of 3-0 Vi cryl were used. Subdermal suture of 3-0 Vicryl, subcuticular suture of 4-0 Monocryl. The patient re ceived 2 g of Ancef for antibiotic prophylaxis after receiving 2 doses of penicillin for beta strep p rophylaxis. She was taken to the recovery room in satisfactory condition. Sponge and needle counts were correct x2. Tyre Retreader Surgeon: Dr. Corrales. Estimated Blood Loss: Less than 800 cc. MPG/MODL Voice ID: [id number] Report ID: [id number]
== END 2020-05-17 10:00 | disposition home or self-care (01) | DRG 787 ==
LOC: L&D 16:19 → 2ND-WC 16:29
PROVIDERS: ADMIT Specialist; ATTEND Specialist
PROC: 10D00Z1 Extraction of Products of Conception, Low, Open Approach (ICD-10-PCS; principal; 2020-05-15 01:15)
DX: O62.0 Primary inadequate contractions (principal); O98.82 Other maternal infectious and parasitic diseases complicating childbirth; O86.12 Endometritis following delivery; O98.32 Other infections with a predominantly sexual mode of transmission complicating childbirth; A60.09 Herpesviral infection of other urogenital tract; O76 Abnormality in fetal heart rate and rhythm complicating labor and delivery; O99.825 Streptococcus B carrier state complicating the puerperium; Z3A.37 37 weeks gestation of pregnancy; Z37.0 Single live birth; Z20.822 Contact with and (suspected) exposure to COVID-19
CPT/HCPCS: 36415; 85025; 85027; 86592; 86850; 86900; 86901; 87340; 88307; J0595; J0690; J2210; J2250; J2540; J2550; J2590; J2765; J2795; J3010; J7120; U0003